=== PATIENT | male | born 1970 | race Caucasian/White ===

== ENCOUNTER 2017-09-07 07:55 | Emergency (ER) | payer OTHER ==
[~2017-09-07] VITALS: Ht 193 cm; Wt 68.1 kg
[2017-09-07 08:52] LABS: HEMATOCRIT 43.2 % (38.0-50.0); HEMOGLOBIN 14.6 G/DL (12.5-16.6); MCH 30.9 PG (29.0-34.0); MCHC 33.8 G/DL (30.0-36.0); MCV 91.5 FL (86-99); PLATELET COUNT 296 K/uL (156-360); RBC DIS.WIDTH-CV 12.1 % (11.8-14.6); RBC DIS.WIDTH-SD 40.3 % (39-53); RED BLOOD COUNT 4.72 M/uL (4.00-5.50); WHITE BLOOD COUNT 5.6 K/uL (4.1-10.2)
[2017-09-07 09:00] LABS: CHLORIDE 105 mEq/L (99-109); POTASSIUM 4.2 mEq/L (3.7-5.4); SODIUM 139 mEq/L (136-147)
[2017-09-07 09:02] LABS: GLUCOSE 126 mg/dL (70-99)
[2017-09-07 09:06] LABS: CREATININE 1.3 mg/dL (0.6-1.3); GFR ESTIMATE (CALCULATED) > 59 mL/min/ (58.99-99999); UREA NITROGEN (BUN) 15 mg/dL (9-23)
[2017-09-07] MEDS ORDERED: ANUSOL-HC21 GM PR (09:16)
[2017-09-07 09:54] VITALS: BP 127/81
== END 2017-09-07 09:56 | disposition home or self-care (01) ==
LOC: EME 07:55
PROC: 069Y3ZZ Drainage of Lower Vein, Percutaneous Approach (ICD-10-PCS; principal; 2017-09-07)
DX: K64.5 Perianal venous thrombosis (principal)
CPT/HCPCS: 80048; 85027; 86850; 86900; 86901; 99281; 99284